=== PATIENT | female | born 1965 | race African-American/Black ===

== ENCOUNTER 2023-12-08 09:50 | Outpatient (REF) | payer OTHER, SELFPAY ==
--- NOTE | ~2023-12-08 | XR_ITS ---
EXAMINATION: XR SHOULDER, RIGHT CLINICAL INFORMATION: Pain in the right shoulder COMPARISON: X-ray the right shoulder May 2023. TECHNIQUE: AP external rotation, Grashey, scapular Y, and axillary views of the right shoulder. FINDINGS: There is mild to moderate hypertrophic osteoarthritis of the acromioclavicular joint unchanged. Glenohumeral joint normal. Surrounding bone and soft tissues unremarkable. XR/XR shoulder RT min 2V IMPRESSION: Degenerative changes of the right shoulder unchanged compared with June 02.
== END 2023-12-08 09:51 | disposition home or self-care (01) ==
LOC: HO.HOSX 09:50
PROVIDERS: Visit Provider Physician Assistant
DX: M75.101 Unspecified rotator cuff tear or rupture of right shoulder, not specified as traumatic (principal)
CPT/HCPCS: 73030

== ENCOUNTER 2023-12-08 11:00 | Outpatient (AMB) | payer OTHER, SELFPAY ==
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
[2023-12-08 11:19] VITALS: BMI 42.0
== END 2023-12-08 12:08 | disposition home or self-care (01) ==
PROVIDERS: Visit Provider Physician Assistant
DX: S46.011A Strain of muscle(s) and tendon(s) of the rotator cuff of right shoulder, initial encounter (principal); Z04.3 Encounter for examination and observation following other accident
CPT/HCPCS: 99204

== ENCOUNTER 2024-01-02 12:12 | Outpatient (AMB) | payer OTHER, SELFPAY ==
--- NOTE | 2024-01-02 12:30 | A.OFFVIS_ITS ---
Vital Signs 01/02/24 12:39 Height 5 ft 7 in Weight 268 lb BMI 42.0 Handedness Right Intake Visit Reasons: Preop RT RTC 01/10/24 NE Intake Note: Ashlyn is a 58 year old left hand dominant female who presents today for a pre op appointment for her RT RTC 01/10/24 NE. Allergies No Known Allergies Allergy (Verified 01/02/24 12:33) HPI HPI Preop RT RTC 01/10/24 NE: Details: 58-year-old left hand dominant female who presents in the office today for her preoperative history and physical exam prior to a right rotator cuff repair to be performed on 01/10/[address] Erasto Rebolledo. Patient has no known allergy history. Patient is currently taking, as follows: -Codeine-guaifenesin 10-100 mg/ 5mL 5 mL PO Q6H PRN -Hydrochlorothiazide 25 mg PO daily -Losartan 50 mg PO daily -Mometasone-formoterol 200-5 mcg/actuation 2 puffs inhalation BID -Omeprazole 40 mg PO daily Patient has a medical history, as follows: -Hypertension -GERD Patient has no known surgical history. Patient has a social history, as follows: -Currently employment: business services assistant [facility] Medical History (Updated 01/02/24 @ 12:40 by Ying Olson PA-C) HTN (hypertension) GERD (gastroesophageal reflux disease) Social History (Updated 01/02/24 @ 12:39 by Efrain Navarrete) Alcohol intake: never Patient Tobacco Use Status: Never used Tobacco Current occupational status: employed Current occupation: personal assitant/ left hand Review of Systems Const All systems reviewed & are unremarkable except as noted in HPI and below Physical Exam Vital Signs: BMI result Body Mass Index 42.0 Const General: cooperative, healthy appearing, comfortable, no acute distress, well developed and alert Orientation/consciousness: patient oriented x3 HEENT Head: Yes normal to inspection, Yes normocephalic and Yes atraumatic Eyes General: appearance normal, both eyes and all related structures Resp Effort & Inspection: normal respiratory effort and able to speak in complete sentences Cardio Rate: regular rate Peripheral pulses: Peripheral pulses 2+ throughout GI Palpation (GI): Soft to palpation Skin Lesions: no lesions Rashes: no rashes Neuro General: patient oriented x3 Extrem Other: Right shoulder normal to inspection. Tenderness over the bicipital groove and along the deltoid region of the shoulder. Forward flexion to 90, external rotation to 45, internal rotation to S1. Pain and weakness with RTC strength. Negative Carolina and cross body abduction. NVI. Assessment & Plan Assessment & Plan (1) Rotator cuff tear, right: Code(s): M75.101 - Unspecified rotator cuff tear or rupture of right shoulder, not specified as traumatic Category: Medical Plan Ms. Salcido is a 58-year-old left hand dominant female who presents in the office today for her preoperative history and physical exam prior to a right rotator cuff repair to be performed on 01/10/[address] Erasto Rebolledo. Patient has no known allergy history. Patient is currently taking, as follows: -Codeine-guaifenesin 10-100 mg/ 5mL 5 mL PO Q6H PRN -Hydrochlorothiazide 25 mg PO daily -Losartan 50 mg PO daily -Mometasone-formoterol 200-5 mcg/actuation 2 puffs inhalation BID -Omeprazole 40 mg PO daily Patient has a medical history, as follows: -Hypertension -GERD Patient has no known surgical history. Patient has a social history, as follows: -Currently employment: business services assistant I discussed in detail the procedure and what to expect pre and post operatively. We discussed the risks, benefits and alternatives to the surgery and the rehabilitation course. The risks include infection, bleeding, nerve injury, ongoing pain, swelling, and stiffness, perioperative risk of injury to bones and soft tissues, and blood clots. I have answered all questions and with their understanding they have consented to move forward with a right rotator cuff repair to be performed on 01/10/[address] Erasto Rebolledo. Follow-up will be at the post operative appointment on 01/18/2024 at 3:15 pm, or sooner if needed. Patient Instructions: Scribed by Eduarda Del Castillo medical office asst, for Ying Olson PA-C on 01/02/2024 at 12:29 pm, EST. Coding Level of Care Code Global (25254) Diagnoses Rotator cuff tear, right M75.101
[2024-01-02 12:39] VITALS: BMI 42.0
== END 2024-01-02 13:06 | disposition home or self-care (01) ==
PROVIDERS: PCP Internal Medicine; Visit Provider Physician Assistant
DX: M75.101 Unspecified rotator cuff tear or rupture of right shoulder, not specified as traumatic (principal)
CPT/HCPCS: 99024

== ENCOUNTER → 2024-01-02 12:12 | Outpatient (BNVA) | payer OTHER, SELFPAY | PROVIDERS: PCP Internal Medicine; Visit Provider Physician Assistant | DX: M75.101 Unspecified rotator cuff tear or rupture of right shoulder, not specified as traumatic (principal) | CPT/HCPCS: 99212 ==

== ENCOUNTER 2024-01-10 09:19 | Day surgery (SDC) | payer OTHER, SELFPAY ==
[2024-01-05 15:18] VITALS: BMI 42.0
[2024-01-10] VITALS (12 sets, daily range): BP systolic 118–157; BP diastolic 61–100; PULSE 64–72; RESP 12–16; TEMP 36.1–36.6; O2SAT 94–97; BMI 45.3
[2024-01-10] MEDS: Lactated Ringers 1,000 ML 50 ML IVCONT (10:44)
--- NOTE | 2024-01-10 11:21 | MHC.SHP ---
Pre-Procedural Eval Section A - 24 Hr Update-Section A only Date of Service: 01/10/24 The patient is an INPATIENT: No Changes since office visit: No Cold of Flu in the past 2 weeks, No New Medical Problems, No Changes in Medication and No Patient answered all questions The patient has been examined within 24 hours of the surgical procedure. The History & Physical has been completed within 30 days and I have reviewed it.: Yes Section B - Complete if H&P > 30 days Chief Complaint: Unspecified rotator cuff tear or rupture of right Allergies: Allergies Allergy/AdvReac Type Severity Reaction Status Date / Time No Known Allergies Allergy Verified 01/10/24 10:20 Plan I have reviewed the history and physical and performed a pertinent physical examination on my patient. No changes have occurred unless specified. Time Spent With Patient Time: Total time managing care of this patient today ____ minutes.
--- NOTE | 2024-01-10 11:40 | HO.ANESPROP2 ---
HPI - Anesthesia Eval Consult details Narrative: 58 yo F presenting for arthroscopic right rotator cuff repair PMFSH Active Problems Active Problems: All Active Problems Rotator cuff tear, right (Acute) Past Medical History Medical History (Updated 01/10/24 @ 10:48 by Jessica Smith RN) Allergies HTN (hypertension) GERD (gastroesophageal reflux disease) Family History Family history of problems with anesthesia: No Surgical History Surgical History (Updated 01/10/24 @ 10:19 by Jessica Smith RN) Hx of section Hx of neck surgery H/O LEEP History of Problems with Anesthesia: No Social History Social History (Updated 01/02/24 @ 12:39 by Efrain Navarrete) Alcohol intake: never Patient Tobacco Use Status: Never used Tobacco Use of substances other than those prescribed or required for medical reasons: No Are you DNR?: No Advance Directives: No Advance Directives Information Provided: Yes Current occupational status: employed Current occupation: personal assitant/ left hand Meds Allergies Allergy/AdvReac Type Severity Reaction Status Date / Time No Known Allergies Allergy Verified 01/10/24 10:20 Active Medications: Current Medications Lactated Ringer's (Lr) 1,000 mls @ 50 mls/hr IVCONT .Q20H CYNDEE Last Admin: 01/10/24 10:44 Dose: 50 mls/hr Home Medications ?Medication ?Instructions ?Recorded ?Confirmed ?Last Taken ?Type hydrochlorothiazide 25 mg tablet 25 mg PO DAILY 12/08/23 01/10/24 Unknown History losartan 50 mg tablet 50 mg PO DAILY 12/08/23 01/10/24 Unknown History mometasone-formoterol HFA 200 2 puff inhalation BID 12/08/23 01/10/24 01/10/24 07:30 History mcg-5 mcg/actuation aerosol inhaler (Dulera) omeprazole 40 mg capsule,delayed 40 mg PO DAILY 12/08/23 01/10/24 01/10/24 07:30 History release codeine 10 mg-guaifenesin 100 mg/5 5 ml PO Q6H PRN Cough 01/02/24 01/10/24 Unknown History mL oral liquid diphenhydramine HCl 12.5 mg 12.5 mg PO BID 01/10/24 01/10/24 Unknown History chewable tablet multivitamin 1 tab PO DAILY 01/10/24 01/10/24 Unknown History Exam Exam Date and Time: January 10, 2024 1110 Height,Weight and Vital Signs: Height 5 ft 7 in Weight 131.088 kg Last Vital Signs Temp 97.9 F 01/10/24 10:39 Pulse 71 01/10/24 10:39 Resp 16 01/10/24 10:39 BP 140/92 H 01/10/24 10:39 Pulse Ox 97 01/10/24 10:39 O2 Del Method Room Air 01/10/24 10:39 Airway Mallampati Class: II TM Dist: >3cm Neck ROM: Limited Loose/Missing/Broken Teeth: No (patient denies any loose or broken teeth) Heart: S1S2 Lungs: CTAB Assessment and Plan Assessment Anesthesia Assessment: Anesthesia Plan Discussed and Chart Reviewed Final Anesthetic Review Family History of Problems with Anesthesia: No History of Problems with Anesthesia: No NPO: Yes ASA Class: III Final Preanesthetic Review: No Changes in Pt Med Stat, Meds/Allgs Chart Reviewed, Consent Obtained/Reviewed and Anes Risks/Benef Reviewed Patient Risk: Intermediate Procedure Risk: Intermediate Anesthetic Plan Anesthetic Plan: GA and Agree w/ Assess. and Plan Disposition: Standard PACU
--- NOTE | 2024-01-10 14:20 | P.BOP_ITS ---
Brief Operative Note Date of Service: 01/10/24 Pre-op diagnosis: left RTC tear Post-op diagnosis: same Procedure: Left rotator cuff repair Implants: Helacoil x 4 and Regeneton lg Surgeon: Erasto Rebolledo MD Anesthesia: GETA Was an Substation Operator Apprentice used for this Procedure?: No Estimated blood loss (mL): 20 IV fluids (mL): 1,200 Pathology: none sent Condition: stable Disposition: PACU
[2024-01-10] MEDS: fentaNYL citrate/PF 100 MCG/2 ML VIAL 50 MCG IVPUSH ×2 (15:19→15:33)
[2024-01-10] MEDS: oxyCODONE HCl Immed Release 5 MG TABLET PO (15:46)
--- NOTE | 2024-01-15 13:47 | W.PM.OPN ---
Operative Note Operative Note Date of Service: 01/10/24 Narrative: Date of Service: 01/10/24 Pre-op diagnosis: left RTC tear Post-op diagnosis: same Procedure: Left rotator cuff repair Implants: Helacoil x 4 and Regeneton lg Surgeon: Erasto Rebolledo MD Anesthesia: GETA Was an Calender Wind Up Tender used for this Procedure?: No Estimated blood loss (mL): 20 IV fluids (mL): 1,200 Pathology: none sent Condition: stable Disposition: PACU Procedure in detail: Patient was brought to the operating room and placed the the beach chair position. All bony prominences were well padded and the limb was prepped and draped in standard sterile fashion. A time out was called to identify proper site, proper procedure and proper surgeon. IV antibiotics per weight were administered. I began by making a posterolateral stab incision with a 15 blade. A blunt trochar was placed into the glenohumeral joint and I insufflated the joint with saline and a 30 degree arthroscope was placed. I established an outside- in anterior portal just distal to the biceps tendon. I then began my inspection of the glenohumeral joint. The biceps was normal and the subscapularis was 90% intact with minimal superior fraying. There were minimal cartilage changes at the inferior glenoid without humeral head changes. There was a full thickness undersurface RTC tear. I debrided the loose cartilage of the glenoid and the degenerative labral tearing. I then removed the trochar and entered the subacromial space. A direct lateral portal was then established and I performed a bursectomy. The cuff was then examined. There was a full thickness tear of the supra and infraspinatus with retraction. The tear was mobile but tight. I released anterior and medially and was able to get to the bare area. I placed two medial row double loaded anchors after using a tap just adjacent to the articular cartilage and then brought the suture limbs ( 8) through the medial cuff. I then debrided the bare area down to bleeding bone and, using a cross bridge configuration, brought 4 limbs to each of two lateral 5.0 anchors. This re-approximated the cuff anatomy anatomically but the tissue quality was poor. I therefore used a Regeneten graft over tear. Using a lateral portal the graft was affixed in place with peek george medailly and one bone anchor laterally. Once I was satisfied with the repair and the location of the graft,. my final images were captured and I removed all instrumentation. Portals were closed with nylon. Patient was placed in an abduction sling, extubated and brought to the recovery room in stable condition. There were no known complications. LARGE REPAIR PROTOCOL
== END 2024-01-10 16:36 | disposition home or self-care (01) ==
LOC: HO.SSS 09:19
PROVIDERS: PCP Internal Medicine; Visit Provider Orthopaedic Surgery
PROC: (CPT 29827; principal; 2024-01-10 12:00)
DX: S46.011A Strain of muscle(s) and tendon(s) of the rotator cuff of right shoulder, initial encounter (principal); X58.XXXA Exposure to other specified factors, initial encounter; I10 Essential (primary) hypertension; K21.9 Gastro-esophageal reflux disease without esophagitis; Z79.899 Other long term (current) drug therapy
CPT/HCPCS: 29827; C1713; C1763; J0131; J0171; J0690; J1100; J2250; J2405; J2704; J2795; J3010

== ENCOUNTER → 2024-01-10 09:19 | Outpatient (BNV) | payer OTHER, SELFPAY | PROVIDERS: PCP Internal Medicine; Visit Provider Orthopaedic Surgery | DX: S46.011A Strain of muscle(s) and tendon(s) of the rotator cuff of right shoulder, initial encounter (principal) | CPT/HCPCS: 29827 ==

== ENCOUNTER 2024-01-18 14:58 | Outpatient (AMB) | payer OTHER, SELFPAY ==
--- NOTE | 2024-01-18 14:59 | MHC.OFFVIS ---
Intake Visit Reasons: PO RT RTC 01/10/24 NE Intake Note: Ashlyn is a 58 year old left hand dominant female who presents today for a post op appointment s/p RT RTC 01/10/24 NE. Patient reports she is doing well. She expresses that she is seeing improvements in her pain and a little of her ROM. Allergies No Known Allergies Allergy (Verified 01/18/24 15:02) HPI HPI PO RT RTC 01/10/24 NE: Details: 58-year-old left hand dominant female who presents in the office today 8 days status post right rotator cuff repair, which was performed on 01/10/[address] Rebolledo. While in the office today the patient reports she is doing well. She states she has noticed improvement in her pain and a slight improvement in her ROM. COUNT INCLUDES THE [facility] Medical History (Updated 01/10/24 @ 10:48 by Jessica Smith RN) Allergies HTN (hypertension) GERD (gastroesophageal reflux disease) Surgical History (Updated 01/18/24 @ 15:06 by Eduarda Del Castillo) Hx of section Hx of neck surgery H/O LEEP Social History (Updated 01/02/24 @ 12:39 by Efrain Navarrete) Alcohol intake: never Patient Tobacco Use Status: Never used Tobacco Current occupational status: employed Current occupation: personal assitant/ left hand Review of Systems Const All systems reviewed & are unremarkable except as noted in HPI and below Physical Exam Const General: cooperative, healthy appearing and no acute distress Resp Effort & Inspection: normal respiratory effort and able to speak in complete sentences Cardio Rate: regular rate Peripheral pulses: Peripheral pulses 2+ throughout GI Palpation (GI): Soft to palpation Skin Lesions: no lesions Rashes: no rashes Extrem Other: Right shoulder: Incision sites are clean, dry, and intact. Sutures intact No surrounding erythema or drainage. No signs of infection. Forward flexion and abduction to 80 degrees. External rotation to neutral. NVI. Assessment & Plan Assessment & Plan (1) S/P right rotator cuff repair: Onset Date: ~01/10/24 Comment: NE Code(s): Z98.890 - Other specified postprocedural states Category: Surgical Plan Ms. Salcido is a 58-year-old left hand dominant female who presents in the office today 8 days status post right rotator cuff repair, which was performed on 01/10/[address] Rebolledo. While in the office today the patient reports she is doing well. She states she has noticed improvement in her pain and a slight improvement in her ROM. Sutures were removed and steri-stripes were applied. The patient will remain in the sling until 6 weeks post-op. She would like to attend outpatient physical therapy at [facility]. A paper prescription was given to the patient in the office today. Follow-up will be in [address] Rebolledo, or sooner if needed. Orders: Orders PT Evaluation and Treatment Today Z98.890 - Other specified postprocedural states Patient Instructions: Scribed by Eduarda Del Castillo medical educator, for Ying Olson PA-C on 01/18/2024 at 3:01 pm, EST. Coding Level of Care Code Global (81620) Diagnoses S/P right rotator cuff repair Z98.890
== END 2024-01-18 15:43 | disposition home or self-care (01) ==
PROVIDERS: PCP Internal Medicine; Visit Provider Physician Assistant
DX: Z98.890 Other specified postprocedural states (principal)
CPT/HCPCS: 99024

== ENCOUNTER → 2024-01-18 14:58 | Outpatient (BNVA) | payer OTHER, SELFPAY | PROVIDERS: PCP Internal Medicine; Visit Provider Physician Assistant | DX: Z47.89 Encounter for other orthopedic aftercare (principal); Z98.890 Other specified postprocedural states | CPT/HCPCS: 99212 ==

== ENCOUNTER 2024-02-16 10:43 | Outpatient (AMB) | payer OTHER, SELFPAY ==
--- NOTE | 2024-02-16 10:59 | A.OFFVIS_ITS ---
Vital Signs 02/16/24 11:00 Height 5 ft 7 in Weight 271 lb BMI 42.4 Intake Visit Reasons: PO RT RTC 01/10/24 NE Intake Note: Ashlyn is a 58 year old left hand dominant female who presents today for a post operative appointment s/p Right Rotator Cuff Repair 01/10/24 NE. Patient reports that she is doing well, she has no pain and no concerns. She would like to discontinue sling. Allergies No Known Allergies Allergy (Verified 02/16/24 11:00) HPI HPI PO RT RTC 01/10/24 NE: Details: 6 weeks s/p right RTC repair. She is doing PT as per large repair protocol. She reports doing well and has no complaints. [facility] Medical History (Updated 01/10/24 @ 10:48 by Jessica Smith RN) Allergies HTN (hypertension) GERD (gastroesophageal reflux disease) Surgical History (Updated 01/18/24 @ 15:06 by Eduarda Del Castillo) Hx of section Hx of neck surgery H/O LEEP Social History (Updated 01/02/24 @ 12:39 by Efrain Navarrete) Alcohol intake: never Patient Tobacco Use Status: Never used Tobacco Current occupational status: employed Current occupation: personal assitant/ left hand Physical Exam Vital Signs: BMI result Body Mass Index 42.4 Extrem Other: portals c/d/i ER to 45 deg Assessment & Plan Assessment & Plan (1) S/P right rotator cuff repair: Onset Date: ~01/10/24 Comment: NE Code(s): Z98.890 - Other specified postprocedural states Category: Surgical Plan: s/p RTC repair doing well. May d/c sling at 6 weeks post op and continue PT per large tear protocol. I reviewed this with her. f/u 6 weeks. Coding Level of Care Code Global (61826) Diagnoses S/P right rotator cuff repair Z98.890
[2024-02-16 11:00] VITALS: BMI 42.4
== END 2024-02-16 11:23 | disposition home or self-care (01) ==
PROVIDERS: PCP Internal Medicine; Visit Provider Orthopaedic Surgery
DX: Z98.890 Other specified postprocedural states (principal)
CPT/HCPCS: 99024

== ENCOUNTER → 2024-02-16 10:43 | Outpatient (BNVA) | payer OTHER, SELFPAY | PROVIDERS: PCP Internal Medicine; Visit Provider Orthopaedic Surgery | DX: Z47.89 Encounter for other orthopedic aftercare (principal) | CPT/HCPCS: 99212 ==

== ENCOUNTER 2024-03-29 09:29 | Outpatient (AMB) | payer OTHER, SELFPAY ==
[2024-03-29 09:46] VITALS: BMI 42.4
--- NOTE | 2024-03-29 09:46 | MHC.OFFVIS ---
Vital Signs 03/29/24 09:46 Height 5 ft 7 in Weight 271 lb BMI 42.4 Intake Visit Reasons: PO RT RTC 01/10/24 NE Intake Note: Ashlyn is a 58 year old left hand dominant female who presents today for a post operative appointment s/p Right Rotator Cuff Repair 01/10/24 NE.. Patient reports that she is dong well with no concerns. She does have soreness at the anterior incision site Allergies No Known Allergies Allergy (Verified 02/16/24 11:00) HPI HPI PO RT RTC 01/10/24 NE: Details: Karin is doing well. She had a large rotator cuff repair but continues to improve with therapy. PFSH Medical History (Updated 01/10/24 @ 10:48 by Jessica Smith RN) Allergies HTN (hypertension) GERD (gastroesophageal reflux disease) Surgical History (Updated 01/18/24 @ 15:06 by Eduarda Del Castillo) Hx of section Hx of neck surgery H/O LEEP Social History (Updated 01/02/24 @ 12:39 by Efrain Navarrete) Alcohol intake: never Patient Tobacco Use Status: Never used Tobacco Current occupational status: employed Current occupation: personal assitant/ left hand Physical Exam Vital Signs: BMI result Body Mass Index 42.4 Extrem Other: Incision clean dry and intact Excellent motion Mild discomfort with empty can testing Assessment & Plan Assessment & Plan (1) S/P right rotator cuff repair: Onset Date: ~01/10/24 Comment: NE Code(s): Z98.890 - Other specified postprocedural states Category: Surgical Plan: Ashlyn is doing well status post rotator cuff repair. I recommend she continue her PT and exercise program. She can follow up with see me in 3 months. No heavy lifting. Coding Level of Care Code Global (74503) Diagnoses S/P right rotator cuff repair Z98.890
== END 2024-03-29 10:26 | disposition home or self-care (01) ==
PROVIDERS: PCP Internal Medicine; Visit Provider Orthopaedic Surgery
DX: Z98.890 Other specified postprocedural states (principal)
CPT/HCPCS: 99024

== ENCOUNTER → 2024-03-29 09:29 | Outpatient (BNVA) | payer OTHER, SELFPAY | PROVIDERS: PCP Internal Medicine; Visit Provider Orthopaedic Surgery | DX: Z47.89 Encounter for other orthopedic aftercare (principal); Z98.890 Other specified postprocedural states | CPT/HCPCS: 99212 ==

== ENCOUNTER 2024-07-25 10:06 | Outpatient (AMB) | payer OTHER, SELFPAY ==
--- NOTE | 2024-07-25 10:09 | MHC.OFFVIS ---
Intake Visit Reasons: PO RT RTC 01/10/24 NE Intake Note: Ashlyn is a 58 year old left hand dominant female who presents today for a post operative appointment s/p Right Rotator Cuff Repair 01/10/24 NE Patient reports that she is doing fantastic with no concerns. She has been discharged from PT as she is doing very well - advised to be cautious /avoid weighted activity. Allergies No Known Allergies Allergy (Verified 02/16/24 11:00) HPI HPI PO RT RTC 01/10/24 NE: Details: Ashlyn is a 58 year old left hand dominant female who presents today for a post operative appointment s/p Right Rotator Cuff Repair 01/10/24 NE Patient reports that she is doing fantastic with no concerns. PFSH Medical History (Updated 01/10/24 @ 10:48 by Jessica Smith RN) Allergies HTN (hypertension) GERD (gastroesophageal reflux disease) Surgical History (Updated 01/18/24 @ 15:06 by Eduarda Del Castillo) Hx of section Hx of neck surgery H/O LEEP Social History (Updated 01/02/24 @ 12:39 by Efrain Navarrete) Alcohol intake: never Patient Tobacco Use Status: Never used Tobacco Current occupational status: employed Current occupation: personal assitant/ left hand Physical Exam Extrem Other: Isolated glenohumeral abduction to 75 degrees. It is scapular recruitment required to comfortably abduct it more than that. Forward flexion to 120 degrees. External rotation to 45 degrees. Assessment & Plan Assessment & Plan (1) S/P right rotator cuff repair: Onset Date: ~01/10/24 Comment: NE Code(s): Z98.890 - Other specified postprocedural states Category: Surgical Plan: 6 months status post rotator cuff repair on the right. She is doing well. I recommend continued scapular stabilization and range of motion exercises with no heavy lifting. She may follow up in 6 months. She understands these instructions. Coding Level of Care Code Est Pt Level 3 (28110) Diagnoses S/P right rotator cuff repair Z98.890
== END 2024-07-25 10:32 | disposition home or self-care (01) ==
PROVIDERS: PCP Internal Medicine; Visit Provider Orthopaedic Surgery
DX: S46.011D Strain of muscle(s) and tendon(s) of the rotator cuff of right shoulder, subsequent encounter (principal)
CPT/HCPCS: 99212

== ENCOUNTER → 2024-07-25 10:06 | Outpatient (BNVA) | payer OTHER, SELFPAY | PROVIDERS: PCP Internal Medicine; Visit Provider Orthopaedic Surgery | DX: Z98.890 Other specified postprocedural states (principal) | CPT/HCPCS: 99212 ==

== ENCOUNTER 2025-01-09 09:11 | Outpatient (AMB) | payer OTHER, SELFPAY ==
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
[2025-01-09 09:30] VITALS: BMI 42.4
--- OUTSIDE RECORDS SUMMARY | 2025-01-09 09:35 | XMS_ITS ---
Author Organization [employer] [facility] Address [address] [place] [address] Care Team Providers Care Portal Architect Name Role Phone ASHLEY BLOOD PA-C Primary Care Provider Edith Cardenas Unavailable [phone] REASON FOR VISIT ULTRA - OVER DUE 6 MO F/U LT OV CYST Encounters Encounter Location Date Provider Diagnosis [facility] [address] [id number] 10/11/2024 Edith Ramos Plan Of Treatment Next Appt Details Provider Name:Edith bolanos, 01/21/2025 09:40:00 AM, [address] [place] [address], [address], [place], [address], Progress Notes * MAYA GARNERB:1965 ( 59 yo F)Acc No.[id number]:10/11/2024 PROGRESS NOTES Patient:?PASCUAL MAXIM Appointment Provider:?Edith bolanos M.D. :1965???Age:59 Y???Sex:Female D ate:10/11/2024 Address:[address] [place], [place] [id number] Pcp:ASHLEY BLOOD PA-C Subjective: * Chief Complaints: * ???1. ULTRA - OVER DUE 6 MO F/U LT OV CYST. * Medical History:? Objective: * Vitals:? Assessment: Plan: * Treatment: * Images: Billing Information: * Visit Code:? * Procedure Codes:? * Electronic signature of Nii Ramos MD on 01/09/2025 at 09:35 AM EDT Sign off status: Pending * Appointment Provider:?Edith Ramos M.D. Date:?10/11/2024 Generated for Lara lo/Armond/Yesenia on:?01/09/2025 09:35 AM EDT
== END 2025-01-09 10:14 | disposition home or self-care (01) ==
LOC: HO.HOS 09:12
PROVIDERS: PCP Internal Medicine; Visit Provider Orthopaedic Surgery
DX: Z47.89 Encounter for other orthopedic aftercare (principal); Z98.890 Other specified postprocedural states
CPT/HCPCS: 99213

== ENCOUNTER → 2025-01-09 09:11 | Outpatient (BNVA) | payer OTHER, SELFPAY | PROVIDERS: PCP Internal Medicine; Visit Provider Orthopaedic Surgery | DX: Z98.890 Other specified postprocedural states (principal) | CPT/HCPCS: 99212 ==